=== PATIENT | male | born 1990 | race Caucasian/White ===

== ENCOUNTER 2021-06-21 06:07 | Day surgery (SDC) | payer OTHER ==
[2021-06-13 17:29] VITALS: BMI 26.4
[2021-06-21] MEDS ORDERED: MIDAZOLAM HCL 2 MG/2 ML SINGLE DOSE VIAL ONE (06:59)
[2021-06-21] MEDS ORDERED: BUPIVACAINE LIPOSOME/PF (EXPAREL) 266 MG/20 ML VIAL ONE (06:59)
[2021-06-21] MEDS ORDERED: BUPIVACAINE HCL/PF 0.5% (5MG/ML) 10 ML VIAL ONE (06:59)
[2021-06-21] MEDS ORDERED: PROPOFOL 20 ML ONE ×4 (07:10→10:05)
[2021-06-21] MEDS ORDERED: BUPIVACAINE HCL 50 ML ONE ×2 (07:13→07:32)
[2021-06-21] MEDS ORDERED: VANCOMYCIN 1,000 MG VIAL (RESTRICTED TO ID ONLY) ONE (08:28)
[2021-06-21] MEDS ORDERED: ONDANSETRON 4 MG/2 ML VIAL IVPUSH PRN (11:40)
[2021-06-21] MEDS ORDERED: oxyCODONE HCL 5 MG TABLET PO PRN (11:40)
[2021-06-21] MEDS ORDERED: INSULIN (NOVOLOG) ASPART 100 UNITS/ML 10ML VIAL SQ ONE (12:24)
[2021-06-21 14:36] VITALS: PULSE 86; TEMP 97.8
[2021-06-21 15:40] VITALS: BP 132/84
== END 2021-06-21 15:20 | disposition home or self-care (01) ==
LOC: FASU 06:07
PROVIDERS: ATTEND Orthopaedic Surgery Sports Medicine
PROC: 0SQC4ZZ Repair Right Knee Joint, Percutaneous Endoscopic Approach (ICD-10-PCS; 2021-06-21)
PROC: 0MSN4ZZ Reposition Right Knee Bursa and Ligament, Percutaneous Endoscopic Approach (ICD-10-PCS; principal; 2021-06-21 08:23)
DX: S83.511A Sprain of anterior cruciate ligament of right knee, initial encounter (principal); S83.251A Bucket-handle tear of lateral meniscus, current injury, right knee, initial encounter; M23.321 Other meniscus derangements, posterior horn of medial meniscus, right knee; W18.49XA Other slipping, tripping and stumbling without falling, initial encounter; Y93.9 Activity, unspecified; Y92.9 Unspecified place or not applicable
CPT/HCPCS: 29883; 29888; C1713; 82962; 94760

== ENCOUNTER 2022-03-23 11:06 | Day surgery (SDC) | payer BC, OTHER ==
[2022-03-20 14:57] VITALS: BMI 25.7
[2022-03-23] MEDS ORDERED: INSULIN REGULAR HUMAN 100 UNITS/ML *VIAL ONE ×2 (11:48→11:53)
[2022-03-23] MEDS ORDERED: INSULIN SLIDING SCALE (NOVOLOG) 1 VIAL SQ ONE (11:51)
[2022-03-23 12:01] VITALS: TEMP 97.7
[2022-03-23] MEDS ORDERED: MIDAZOLAM HCL 2 MG/2 ML SINGLE DOSE VIAL ONE (13:23)
[2022-03-23] MEDS ORDERED: PROPOFOL 60 ML ONE (13:23)
[2022-03-23] MEDS ORDERED: BUPIVACAINE HCL/PF 0.25% (2.5MG/ML) 10 ML VIAL ONE (13:50)
[2022-03-23] MEDS ORDERED: ONDANSETRON 4 MG/2 ML VIAL ONE (14:02)
[2022-03-23] MEDS ORDERED: DEXAMETHASONE SOD PHOSPHATE 4 MG/1 ML VIAL ONE (14:02)
[2022-03-23] MEDS ORDERED: KETOROLAC TROMETHAMINE 30 MG/1 ML VIAL ONE (14:02)
[2022-03-23] MEDS ORDERED: ceFAZolin SODIUM 1 GM VIAL ONE (14:02)
[2022-03-23] MEDS ORDERED: BUPIVACAINE HCL/PF 0.25% (2.5MG/ML) 10 ML VIAL IJ ONE ×2 (14:25→14:30)
[2022-03-23] MEDS ORDERED: oxyCODONE HCL 5 MG TABLET PO PRN (14:38)
[2022-03-23] MEDS ORDERED: ONDANSETRON 4 MG/2 ML VIAL IVPUSH PRN (14:38)
[2022-03-23] MEDS ORDERED: DEXTROSE 50%-WATER - 25 GM/50 ML VIAL IVPUSH ONE (14:53)
[2022-03-23 15:19] LABS: CALCIUM 9.2 mg/dl (8.5-10); TOT PROT 6.4 g/dl (6.4-8.2)
[2022-03-23 15:37] VITALS: RESP 16
[2022-03-23 16:09] VITALS: BP 126/77; PULSE 76
== END 2022-03-23 16:25 | disposition home or self-care (01) ==
LOC: FASU 11:06
PROVIDERS: ATTEND Orthopaedic Surgery Sports Medicine
PROC: 0SBC4ZZ Excision of Right Knee Joint, Percutaneous Endoscopic Approach (ICD-10-PCS; 2022-03-23)
PROC: 0SBC4ZZ Excision of Right Knee Joint, Percutaneous Endoscopic Approach (ICD-10-PCS; principal; 2022-03-23 14:11)
DX: M24.661 Ankylosis, right knee (principal); M65.861 Other synovitis and tenosynovitis, right lower leg
CPT/HCPCS: 36415; 80053; 82962; 87070; 87075; 87205; 94760